=== PATIENT | male | born 1970 | race Caucasian/White ===

== ENCOUNTER 2016-10-28 20:37 | Emergency (ER) | payer OTHER ==
[~2016-10-28] VITALS: Ht 172.7 cm; Wt 80.0 kg
[~2016-10-28 20:37] MED LIST: Acetaminophen PO; BUME0.5T PO; DIGO125T PO; DOCU-144 PO; ENOX40DI2 SC; FAMO-95 PO; LORA-441 PO; LOSA25TA2 PO; METO25TA7 PO; MOR2I IV; NIT4 SL; NS3ML IV; Patient Own Medication PO; SPIR25TA PO; UDROBDM PO; ZOF4I IV
[2016-10-28 20:39] VITALS: Ht 172.7 cm; Wt 80.0 kg
[2016-10-28 21:11] LABS: ADD SCAN DIFF NO
[2016-10-28 21:16] LABS: HEMATOCRIT 37.9 % (42.0-52.0); HEMOGLOBIN 13.1 g/dl (14.0-18.0); MEAN CORPUSCULAR HEMOGLOBIN 31.4 pg (29.0-33.0); MEAN CORPUSCULAR HGB CONC 34.6 g/dl (32.0-37.0); MEAN CORPUSCULAR VOLUME 90.9 fl (82.0-101.0); MEAN PLATELET VOLUME 11.9 fl (7.4-10.4); PLATELET COUNT 133 10^3/UL (140-415); RED BLOOD COUNT 4.17 10^6/ul (4.70-6.10); WHITE BLOOD COUNT 5.4 10^3/ul (4.8-10.8)
[2016-10-28 21:35] LABS: ALANINE AMINOTRANSFERASE 35 IU/L (13-69); ALBUMIN 4.2 g/dl (3.3-4.9); ALBUMIN/GLOBULIN RATIO 1.35; ALKALINE PHOSPHATASE 74 IU/L (42-121); ANION GAP 11 (8-16); ASPARTATE AMINO TRANSFERASE 22 IU/L (15-46); BLOOD UREA NITROGEN 17 mg/dl (7-20); CALCIUM 9.6 mg/dl (8.4-10.2); CARBON DIOXIDE 27 mmol/L (21-31); CHLORIDE 105 mmol/L (97-110); CREATININE 0.91 mg/dl (0.61-1.24); GLUCOSE 123 mg/dl (70-220); POTASSIUM 4.1 mmol/L (3.5-5.1); SODIUM 139 mmol/L (135-144); TOTAL PROTEIN 7.3 g/dl (6.1-8.1)
[2016-10-28] MEDS ORDERED: IVAB5TAB PO (21:37)
[2016-10-28] MEDS ORDERED: OMEG1CAP31 PO (21:38)
[2016-10-28] MEDS ORDERED: UBID10CA5 PO (21:38)
[2016-10-28 21:47] LABS: B-TYPE NATRIURETIC PEPTIDE 2600 PG/ML (0-125)
[2016-10-28 21:51] LABS: EOSINOPHILS # 0.1 10^3/ul (0.0-0.5); LYMPHOCYTES # 1.3 10^3/ul (0.8-2.9); MONOCYTE # 0.3 10^3/ul (0.3-0.9); NEUTROPHIL # 3.7 10^3/ul (1.6-7.5)
[2016-10-28 21:52] LABS: TROPONIN-I < 0.012 ng/ml (0.00-0.12)
--- NOTE | 2016-10-28 22:16 | RADRPT ---
PROCEDURE: CHEST - 1 VIEW CLINICAL INDICATION: 46-year-old male with chest pain. TECHNIQUE: A single frontal PA upright portable view of the chest was performed. The images were reviewed on a PACS workstation. COMPARISON: Chest x-ray July 08, 2015. FINDINGS: There is a left-sided biventricular pacemaker. The cardiomediastinal silhouette is mildly enlarged. There is a shallow inspiration. There is mild bilateral lower lung zone subsegmental atelectasis. There is no evidence for an infiltrate. There is no evidence for congestive heart failure. There is no evidence for pneumothorax. The osseous structures are intact. IMPRESSION: 1. Left-sided biventricular pacemaker. 2. Cardiomegaly. 3. Shallow inspiration. 4. Mild bibasilar subsegmental atelectasis. .Mariano Jesus MD, Date Time Electronically viewed and signed by .Mariano Jesus MD, MD on 10/28/2016 22:15 .M/
--- NOTE | 2016-10-28 22:48 | ERA ---
ER Documentation Chief Complaint Date/Time DATE: 10/28/16 TIME: 22:29 Chief Complaint SOB, Has Pacemaker and EF 25% HPI This is a 45-year-old male with a past medical history of severe cardiomyopathy with an ejection fraction of 20%, congestive heart failure, systolic and diastolic dysfunction, pulmonary hypertension, mitral and tricuspid valve disorders, who presented to the emergency room with a 7 day period of cough and shortness of breath. He is followed at [facility]. He states he had a dry nonproductive cough for the past 7 days with no fever. The patient states that he has 1 minute episodes of shortness of breath that occurs while he is at rest. He says he just feels like he is not getting a deep breath in and he takes a few deep breaths and it tends to resolve. He says he had his AICD/pacemaker interrogated 2 weeks ago and adjusted and he feels like ever since that happened he has had some breathing issues. He says these breathing spells happen a few times a day. He has no chest pain no fever no headaches no back pain or jaw pain. Says he has no exertional dyspnea the patient sleeps on 2 pillows he does not know if he has any orthopnea. He says he was admitted for the exact same thing in June 2015. He says at that time it was much worse than it is now. After reviewing records the patient then was treated for bronchitis at an echocardiogram was put on antibiotics he was going to be sent home but then was transferred to [facility]. The patient states he was at [facility] for several more days he was treated for a pulmonary infection and he said he got better and was sent home ROS All systems reviewed and are negative except as per history of present illness. Medications Home Meds Active Scripts Sodium Chloride* (NS* 3 ml (Saline Flush)) 3 Ml Soln, 3 ML IV .PER PROTOCOL for 30 Days Prov:CANTU,XIMENA V[employer] 07/10/15 [Patient Own Medication] 1 EA EA No Conflict Check, 1 EA PO BID, EA Prov:CANTU,[employer] 07/10/15 Ondansetron Hcl* (Zofran*) 2 Mg/Ml Soln, 4 MG IV Q6H Y for NAUSEA AND/OR VOMITING for 30 Days Prov:XIMENA CANTU [employer] 07/10/15 Nitroglycerin* (Nitrostat*) 25 Tab Subl, 1 TAB SL Q5M Y for CHEST PAIN for 30 Days Prov:XIMENA CANTU NP 07/10/15 Morphine Sulfate (Morphine Sulfate) 2 Mg/Ml Soln, 2 MG IV Q4H Y for PAIN LEVEL 7 -10 for 30 Days Prov:XIMENA CANTU [employer] 07/10/15 Losartan Potassium* (Cozaar*) 25 Mg Tab, 12.5 MG PO BID for 30 Days, TAB Prov:XIMENA CANTU [employer] 07/10/15 Lorazepam* (Ativan*) 0.5 Mg Tab, 0.5 MG PO Q8H Y for ANXIETY for 30 Days, TAB Prov:XIMENA CANTU [employer] 07/10/15 Guaifenesin-Dextromethorphan* (Robitussin* DM) 5 Ml Syrup, 5 ML PO Q6H Y for COUGH for 30 Days Prov:XIMENA CANTU NP 07/10/15 Enoxaparin Sodium* (Enoxaparin Sodium*) 40 Mg/0.4 Ml Soln, 40 MG SC DAILY for 30 Days Prov:XIMENA CANTU [employer] 07/10/15 Docusate Sodium* (Colace*) 100 Mg Cap, 100 MG PO Q12H Y for CONSTIPATION for 30 Days, CAP Prov:XIMENA CANTU [employer] 07/10/15 [Acetaminophen] 325 MG TAB No Conflict Check, 650 MG PO Q6H Y for PAIN LEVEL 1- 3 OR FEVER, TAB Prov:XIMENA CANTU [employer] 07/10/15 Famotidine* (Pepcid* AC) 20 Mg Tab, 10 MG PO BID, #0 Prov:ENID MARVIN [employer] 12/08/14 Reported Medications Charlotte-3/Dha/Epa/Fish Oil (FISH OIL 1,000 MG SOFTGEL) 1 Each Capsule, 1 CAP PO, CAP 10/28/16 Ubidecarenone* (Co Q-10*) 10 Mg Capsule, 10 MG PO DAILY, CAP 10/28/16 Ivabradine HCl (Corlanor) 5 Mg Tablet, 5 MG PO BID, #60 TAB 10/28/16 Metoprolol Succinate* (Toprol XL*) 25 Mg Tab.sr.24h, 37.5 MG PO DAILY, #30 TAB 07/08/15 Digoxin* (Digoxin*) 0.125 Mg Tab, 0.125 MG PO DAILY, #30 TAB 07/08/15 Discontinued Reported Medications Spironolactone* (Aldactone*) 25 Mg Tablet, 25 MG PO DAILY, #30 TAB 07/08/15 Bumetanide* (Bumetanide*) 0.5 Mg Tablet, 0.5 MG PO DAILY, TAB 07/08/15 Allergies Allergies: Coded Allergies: sacubitril (Verified Allergy, Intermediate, RASH, 10/28/16) valsartan (Verified Allergy, Intermediate, RASH, 10/28/16) PMhx/Soc History of Surgery: Yes (APPENDECTOMY 25YRS AGO, PACEMAKER) Anesthesia Reaction: No Hx Neurological Disorder: No Hx Respiratory Disorders: No Hx Cardiac Disorders: Yes ("E/F=20%", PACEMAKER, "NEEDS TRANSPLANT") Hx Psychiatric Problems: No Hx Miscellaneous Medical Probl: No Hx Alcohol Use: Yes (OCCASIONALLY) Hx Substance Use: No Hx Tobacco Use: No Smoking Status: Never smoker FmHx Family History: No coronary disease Physical Exam Vitals Vital Signs Date Time Temp Pulse Resp B/P Pulse Ox O2 Delivery O2 Flow Rate FiO2 10/28/16 20:39 97.4 73 20 113/73 100 Physical Exam Const: Well-developed, well-nourished Head: Atraumatic, normocephalic Eyes: Normal Conjunctiva, PERRLA, EOMI, normal sclera, no nystagmus ENT: Normal External Ears, Nose and Mouth, moist mucus membranes. Neck: Full range of motion. No meningismus, no lymphadenopathy. Resp: Clear to auscultation bilaterally, no wheezing, mild scattered rhonchi at both bases left more than right, no rales Cardio: Regular rate and rhythm, 2 to 3/6 systolic murmur, S1 S2 present Abd: Soft, non tender x 4, non distended. Normal bowel sounds, no guarding or rebound, no pulsitile abdominal masses or bruits Skin: No petechiae or rashes, no ecchymosis , no maculopapular rash Back: No midline or flank tenderness Ext: No cyanosis, or edema, FROM x 4, normal inspection, neurovascularly intact x 4 Neur: Awake and alert, STR 5/5 x 4, sensation intact x 4, no focal findings, cerebellum intact Psych: Normal Mood and Affect Result Diagram: 10/28/16210410/28/162104 Results 24 hrs Laboratory Tests Test 10/28/16 21:05 White Blood Count 5.410^3/ul Red Blood Count 4.1710^6/ul Hemoglobin 13.1g/dl Hematocrit 37.9% Mean Corpuscular Volume 90.9fl Mean Corpuscular Hemoglobin 31.4pg Mean Corpuscular Hemoglobin Concent 34.6g/dl Red Cell Distribution Width 13.0% Platelet Count 30235^3/UL Mean Platelet Volume 11.9fl Neutrophils % 68.0% Lymphocytes % 24.0% Monocytes % 6.0% Eosinophils % 2.0% Neutrophils # 3.710^3/ul Lymphocytes # 1.310^3/ul Monocytes # 0.310^3/ul Eosinophils # 0.110^3/ul Sodium Level 139mmol/L Potassium Level 4.1mmol/L Chloride Level 105mmol/L Carbon Dioxide Level 27mmol/L Anion Gap 11 Blood Urea Nitrogen 17mg/dl Creatinine 0.91mg/dl Glucose Level 123mg/dl Calcium Level 9.6mg/dl Total Bilirubin 2.0mg/dl Direct Bilirubin 0.00mg/dl Indirect Bilirubin 2.0mg/dl Aspartate Amino Transf (AST/SGOT) 22IU/L Alanine Aminotransferase (ALT/SGPT) 35IU/L Alkaline Phosphatase 74IU/L Troponin I < 0.012ng/ml B-Type Natriuretic Peptide 2600PG/ML Total Protein 7.3g/dl Albumin 4.2g/dl Globulin 3.10g/dl Albumin/Globulin Ratio 1.35 Procedures/MDM EKG: Rate/Rhythm: Electronic ventricular pacemaker QRS, ST, QT: NORMAL OK, QRS, QT] Impression: NORMAL EKG PROCEDURE: CHEST - 1 VIEW CLINICAL INDICATION: 46-year-old male with chest pain. TECHNIQUE: A single frontal PA upright portable view of the chest was performed. The images were reviewed on a PACS workstation. COMPARISON: Chest x-ray July 08, 2015. FINDINGS: There is a left-sided biventricular pacemaker. The cardiomediastinal silhouette is mildly enlarged. There is a shallow inspiration. There is mild bilateral lower lung zone subsegmental atelectasis. There is no evidence for an infiltrate. There is no evidence for congestive heart failure. There is no evidence for pneumothorax. The osseous structures are intact. IMPRESSION: 1. Left-sided biventricular pacemaker. 2. Cardiomegaly. 3. Shallow inspiration. 4. Mild bibasilar subsegmental atelectasis. .Mariano Jesus MD, MD Date Time Electronically viewed and signed by .Mariano Jesus MD, on 10/28/2016 22:15 .M/ CC: RICKI DORSEY DO Had an extensive discussion with the patient about his current symptoms. The patient says that he wants to be discharged home now and he will go home where his friend, who is a physician, will meet him and the patient will go to [facility] tonight. The patient states he feels more comfortable going to [facility] and just wants to leave and go now. He says is not having any shortness of breath since she has been here he has no chest pain. He says he feels well. I told him I wanted to get a CAT scan of the chest to rule out pulmonary embolism, get a digoxin level back, and have him admitted for interrogation of his [facility] AICD. Patient says that he thanks me for my concern but wants to get these things done [facility] were all his doctors are I will give the patient injection of subcutaneous Lovenox to cover him until he gets [facility] in case he does have any emboli My suspicion for pulmonary embolism is very low based on his symptomatology of having a week's worth of 1 minute or less shortness of breath with no palpitations or other symptoms. His heart rate is normal. His oxygen level is normal. The patient will leave from here and go to [facility] on his own Departure Diagnosis: Primary Impression: Shortness of breath Condition: Stable RICKI DORSEY DO October 28, 2016 22:39
[2016-10-28] MEDS ORDERED: ENOXAPARIN 80 MG/0.8 ML SYG SC SCH (23:30)
[2016-10-28 23:33] VITALS: BP 118/79; PULSE 68; RESP 20; TEMP 98.5
== END 2016-10-28 23:45 | disposition home or self-care (01) ==
LOC: E/R 20:37
DX: R06.02 Shortness of breath (principal); R40.2252 Coma scale, best verbal response, oriented, at arrival to emergency department; I50.9 Heart failure, unspecified; R40.2142 Coma scale, eyes open, spontaneous, at arrival to emergency department; R40.2362 Coma scale, best motor response, obeys commands, at arrival to emergency department; Z95.0 Presence of cardiac pacemaker
CPT/HCPCS: 36415; 71010; 80053; 80162; 83880; 84484; 85025; 93005; 96372; J1650; Z7502

== ENCOUNTER 2017-11-08 21:29 | Emergency (ER) | END 2017-11-08 23:56 | disposition left against medical advice (07) ==